=== PATIENT | male | born 1960 | race Caucasian/White ===

== ENCOUNTER 2024-03-27 20:17 | Inpatient (IN) | payer OTHER ==
[~2024-03-27] VITALS: Ht 170.2 cm; Wt 87.1 kg
[2024-03-27 20:34] VITALS: BP 129/78; PULSE 127; RESP 20; TEMP 102.7; O2SAT 94
[2024-03-27] MEDS: IBUPROFEN 600 MG TAB PO ONE (21:07)
[2024-03-27] MEDS: ACETAMINOPHEN EXTRA STRENGTH 500 MG TAB PO ONE (21:08)
[2024-03-27 21:26] LABS: APPEARANCE,URINE CLEAR (CLEAR); BILIRUBIN,URINE 1+ (NEGATIVE); BLOOD, URINE 3+ (NEGATIVE); COLOR,URINE YELLOW (YELLOW); LEUKOCYTE ESTERASE ,URINE TRACE (NEGATIVE); NITRITE, URINE NEGATIVE (NEGATIVE); PROTEIN,URINE 1+ (NEGATIVE); UGLUCOSE NEGATIVE (NEGATIVE)
[2024-03-27 21:31] LABS: FLU A ANTIGEN NEGATIVE (NEGATIVE); FLU B ANTIGEN NEGATIVE (NEGATIVE); ICTOTEST POSITIVE (NEGATIVE)
[2024-03-27 21:32] LABS: BACTERIA,URINE >30 (MANY) /HPF (None Seen); MUCUS,URINE 1+ /LPF (None Seen); SQUAMOUS EPITHELIAL CELL,UR 0-3 (FEW) /LPF (0-3 (FEW))
[2024-03-27] MEDS ORDERED: cefTRIAXone 1,000 MG VIAL ONE (21:48)
[2024-03-27] MEDS: NACL 0.9% 1,000 ML IV ONE ×3 (21:50→23:05)
[2024-03-27 22:09] LABS: BASOPHILS # (AUTO) 0.1 K/uL (0.00-0.22); BASOPHILS % (AUTO) 0.5 % (0.0-2.0); HEMATOCRIT 42.4 % (36-52); HEMOGLOBIN 14.6 g/dL (12.0-18.0); LYMPHOCYTES # (AUTO) 1.1 K/uL (2.0-11.5); MEAN CORPUSCULAR HEMOGLOBIN 29 pg (27-31); MEAN CORPUSCULAR HGB CONC 34 g/dL (33-37); MEAN CORPUSCULAR VOLUME 85.4 fL (80-94); MONOCYTES # (AUTO) 1.1 K/uL (0.8-1.0); MONOCYTES % (AUTO) 8.1 % (1.7-9.3); NEUTROPHILS # (AUTO) 11.2 K/uL (1.8-7.7); NEUTROPHILS % (AUTO) 83.4 % (42.2-75.2); PLATELET COUNT (AUTO) 212 K/uL (140-450); RED BLOOD CELL COUNT(AUTO) 4.97 MIL/uL (4.20-6.10); RED CELL DISTRIBUTION WIDTH 13.6 % (11.6-13.7); WHITE BLOOD COUNT (AUTO) 13.5 K/uL (4.8-10.8)
[2024-03-27 22:26] LABS: ALBUMIN 3.2 g/dL (3.4-5.0); ANION GAP 19.5 (8-16); CALCIUM 9.1 mg/dL (8.5-10.1); CARBON DIOXIDE 21.8 mmol/L (21-32); CREATININE 1.2 mg/dL (0.6-1.3); POTASSIUM 3.3 mmol/L (3.5-5.1); TOTAL BILIRUBIN 0.9 mg/dL (0.0-1.0)
[2024-03-27 22:29] LABS: LACTIC ACID 0.8 mmol/L (0.4-2.0)
[2024-03-27] MEDS ORDERED: KCL 20 MEQ IN 100 mL PREMIX 200 ML IV PRN (23:00)
[2024-03-27] MEDS ORDERED: HYDROcodone/APAP 5/325 MG 1 TAB TAB PO PRN (23:00)
[2024-03-27] MEDS ORDERED: ACETAMINOPHEN 325 MG TAB PO PRN (23:00)
[2024-03-27] MEDS ORDERED: MAGNESIUM OXIDE 400 MG TAB PO PRN (23:00)
[2024-03-27] MEDS ORDERED: MAG SULF 2000 MG/WATER PREMIX 50 ML IV PRN (23:00)
[2024-03-27 23:35] VITALS: BP 114/73; PULSE 88; RESP 18; TEMP 98.1; O2SAT 94
[2024-03-27] MEDS: NACL 0.9% 1,000 ML IV SCH (23:35)
[2024-03-28] MEDS: POTASSIUM CHLORIDE 10 MEQ TABER PO PRN (00:48)
[2024-03-28 04:00] VITALS: BP 123/80; PULSE 86; RESP 18; TEMP 98; O2SAT 97
[2024-03-28 07:00] LABS: BASOPHILS % (AUTO) 0.4 % (0.0-2.0); EOSINOPHILS % (AUTO) 0.3 % (0.0-4.0); HEMATOCRIT 42.1 % (36-52); HEMOGLOBIN 14.5 g/dL (12.0-18.0); LYMPHOCYTES # (AUTO) 1.1 K/uL (2.0-11.5); LYMPHOCYTES % (AUTO) 8.8 % (20.5-51.1); MEAN CORPUSCULAR HEMOGLOBIN 29 pg (27-31); MEAN CORPUSCULAR HGB CONC 34 g/dL (33-37); MEAN CORPUSCULAR VOLUME 85.3 fL (80-94); MONOCYTES # (AUTO) 1.1 K/uL (0.8-1.0); MONOCYTES % (AUTO) 8.9 % (1.7-9.3); NEUTROPHILS # (AUTO) 9.8 K/uL (1.8-7.7); NEUTROPHILS % (AUTO) 81.6 % (42.2-75.2); PLATELET COUNT (AUTO) 190 K/uL (140-450); RED BLOOD CELL COUNT(AUTO) 4.94 MIL/uL (4.20-6.10); RED CELL DISTRIBUTION WIDTH 13.4 % (11.6-13.7)
[2024-03-28 08:00] VITALS: BP 136/70; PULSE 90; RESP 20; TEMP 97.6; O2SAT 100
[2024-03-28 08:01] LABS: ANION GAP 13.6 (8-16); CALCIUM 8.8 mg/dL (8.5-10.1); POTASSIUM 3.6 mmol/L (3.5-5.1)
[2024-03-28 08:32] VITALS: PULSE 90; RESP 20; O2SAT 100
[2024-03-28] MEDS: MEDS-TO-BEDS MC SCH (09:00)
[2024-03-28] MEDS ORDERED: CEPH-588 PO (09:55)
[2024-03-28] MEDS ORDERED: ACET-1182 PO (09:55)
[2024-03-28 10:14] VITALS: BP 136/70; PULSE 90; RESP 20; TEMP 97.6
[2024-03-29] MEDS ORDERED: ONDA-188 PO (17:23)
[2024-03-29] MEDS ORDERED: TRAM-748 PO (17:23)
[2024-03-29] MEDS ORDERED: NAPR-1704 PO (17:23)
== END 2024-03-28 11:43 | disposition home or self-care (01) | DRG 720 ==
LOC: MED 20:17 → MTU 23:03
PROVIDERS: ADMIT Hospitalist; ATTEND Hospitalist
DX: A41.9 Sepsis, unspecified organism (principal); E44.0 Moderate protein-calorie malnutrition; E87.1 Hypo-osmolality and hyponatremia; N39.0 Urinary tract infection, site not specified; Z20.822 Contact with and (suspected) exposure to COVID-19; R73.03 Prediabetes; Z68.30 Body mass index [BMI] 30.0-30.9, adult
CPT/HCPCS: 36415; 71045; 80048; 80053; 81001; 83605; 83735; 84100; 85025; 87040; 87081; 87086; 87186; 96361; 96374; 99291; J0696; J1644; J7060; Q0092

== ENCOUNTER 2024-03-29 16:41 | Emergency (ER) | payer OTHER ==
[~2024-03-29] VITALS: Ht 170.2 cm; Wt 84.5 kg
[~2024-03-29 16:41] MED LIST: ACET-1182 PO; CEPH-588 PO
[2024-03-29 16:49] VITALS: BP 110/73; PULSE 103; RESP 18; TEMP 98.5; O2SAT 96
[2024-03-29] MEDS ORDERED: TRAM-748 PO (17:23)
[2024-03-29] MEDS ORDERED: NAPR-1704 PO (17:23)
[2024-03-29] MEDS ORDERED: ONDA-188 PO (17:23)
[2024-03-29] MEDS: KETOROLAC 30 MG/ML VIAL IM ONE (17:34)
[2024-03-29] MEDS: HYDROcodone/APAP 5/325 MG 1 TAB TAB PO ONE (18:26)
== END 2024-03-29 18:35 | disposition home or self-care (01) ==
LOC: MED 16:41
DX: N39.0 Urinary tract infection, site not specified (principal); R51.9 Headache, unspecified; F17.210 Nicotine dependence, cigarettes, uncomplicated; Z79.899 Other long term (current) drug therapy
CPT/HCPCS: 96372; 99283; J1885